=== PATIENT | male | born 1940 | race African-American/Black ===

== ENCOUNTER → 2020-08-19 14:18 | Outpatient (BNVA) | payer OTHER, SELFPAY | PROVIDERS: PCP Family Medicine; Referring Provider Family Medicine; Visit Provider Urology | DX: Z76.89 Persons encountering health services in other specified circumstances (principal) ==

== ENCOUNTER → 2020-12-10 14:02 | Outpatient (BNVA) | payer OTHER, SELFPAY | PROVIDERS: PCP Family Medicine; Visit Provider Urology ==

== ENCOUNTER 2021-01-12 09:24 | Day surgery (SDC) | payer OTHER, SELFPAY ==
[2021-01-07 12:25] VITALS: BMI 24.7
--- NOTE | 2021-01-08 12:49 | HO.ANESPROP2 ---
Documented by User: Angela Galicia 01/08/21 13:09 HPI - Anesthesia Eval Consult details Narrative: 80yo M for Insertion Suprapubic Tube Cardiac cleared, increased risk PMFSH Active Problems Active Problems: All Active Problems (Updated 01/07/21 @ 12:39 by Pamela Sheridan) Neurogenic bladder, flaccid (Acute) Past Medical History Medical History (Updated 01/07/21 @ 12:39 by Pamela Sheridan) (HFpEF) heart failure with preserved ejection fraction CAD (coronary artery disease) Chronic diastolic (congestive) heart failure CVA (cerebral vascular accident) Dementia GERD (gastroesophageal reflux disease) Glaucoma History of Helicobacter pylori infection History of seizures Hx of deep venous thrombosis Left bundle branch block (LBBB) Lymph edema Neurogenic bladder Psoriasis UTI (urinary tract infection) Surgical History Surgical History (Updated 01/07/21 @ 12:21 by Pamela Sheridan) Hx of colonoscopy Social History Social History (Updated 01/07/21 @ 12:37 by Pamela Sheridan) Household Members: Spouse Are you a primary rental boats caretaker to a significant other at home: No Do you presently have visiting nurse or other home services: Yes ([facility] visits every 2 weeks more prn) Smoking Status: Former smoker Smoking Quit Date: 1999 Use of substances other than those prescribed or required for medical reasons: No Advance Directives: No Advance Directives Information Provided: No Advance Directives on File: No Meds Allergies Allergy/AdvReac Type Severity Reaction Status Date / Time ciprofloxacin Allergy Seizure Verified 01/07/21 12:22 Home Medications Medication Instructions Recorded Confirmed Last Taken Type fondaparinux 7.5 mg/0.6 mL 7.5 mg SUBCUT DAILY 08/19/20 01/06/21 Unknown History subcutaneous solution syringe furosemide 20 mg tablet 20 mg PO DAILY 08/19/20 01/06/21 Unknown History acetaminophen 650 mg PO BID PRN 01/06/21 01/06/21 Unknown History ascorbic acid (vitamin C) 500 mg PO DAILY 01/06/21 01/06/21 Unknown History aspirin [Aspir-81] 81 mg PO DAILY 01/06/21 01/06/21 Unknown History cholecalciferol (vitamin D3) 25 mcg PO DAILY 01/06/21 01/06/21 Unknown History [Vitamin D3] cyanocobalamin (vitamin B-12) 1,000 mcg PO DAILY 01/06/21 01/06/21 Unknown History finasteride 5 mg PO DAILY 01/06/21 01/06/21 Unknown History memantine 5 mg PO BID 01/06/21 01/06/21 Unknown History metoprolol succinate 50 mg PO DAILY 01/06/21 01/06/21 Unknown History multivitamin 1 tab PO DAILY 01/06/21 01/06/21 Unknown History omeprazole 20 mg PO DAILY 01/06/21 01/06/21 Unknown History phenytoin sodium extended 200 mg PO BID 01/06/21 01/12/21 01/12/21 06:00 History [Phenytex Extended] potassium chloride 10 meq PO DAILY 01/06/21 01/06/21 Unknown History simvastatin 20 mg PO BEDTIME 01/06/21 01/06/21 Unknown History Exam Exam Date and Time: January 08, 2021 124 Height,Weight and Vital Signs: Height 6 ft 2 in Weight 87.543 kg Narrative Narrative: EKG 12/24/20 NSR at 75 old LBBB, stable since 2011 Per cardiac note, Echo 09/2018 stable from previous with LVEF in 40's Assessment and Plan Assessment Anesthesia Assessment: Chart Reviewed Documented by User: Chikis Moya 01/12/21 12:03 [facility] Past Medical History Medical History (Updated 01/07/21 @ 12:39 by Pamela Sheridan) (HFpEF) heart failure with preserved ejection fraction CAD (coronary artery disease) Chronic diastolic (congestive) heart failure CVA (cerebral vascular accident) Dementia GERD (gastroesophageal reflux disease) Glaucoma History of Helicobacter pylori infection History of seizures Hx of deep venous thrombosis Left bundle branch block (LBBB) Lymph edema Neurogenic bladder Psoriasis UTI (urinary tract infection) Surgical History Surgical History (Updated 01/07/21 @ 12:21 by Pamela Sheridan) Hx of colonoscopy Social History Social History (Updated 01/07/21 @ 12:37 by Pamela Sheridan) Household Members: Spouse Are you a primary rental boats caretaker to a significant other at home: No Do you presently have visiting nurse or other home services: Yes ([facility] visits every 2 weeks more prn) Smoking Status: Former smoker Smoking Quit Date: 1999 Use of substances other than those prescribed or required for medical reasons: No Advance Directives: No Advance Directives Information Provided: No Advance Directives on File: No Meds Allergies Allergy/AdvReac Type Severity Reaction Status Date / Time ciprofloxacin Allergy Seizure Verified 01/07/21 12:22 Home Medications Medication Instructions Recorded Confirmed Last Taken Type fondaparinux 7.5 mg/0.6 mL 7.5 mg SUBCUT DAILY 08/19/20 01/06/21 Unknown History subcutaneous solution syringe furosemide 20 mg tablet 20 mg PO DAILY 08/19/20 01/06/21 Unknown History acetaminophen 650 mg PO BID PRN 01/06/21 01/06/21 Unknown History ascorbic acid (vitamin C) 500 mg PO DAILY 01/06/21 01/06/21 Unknown History aspirin [Aspir-81] 81 mg PO DAILY 01/06/21 01/06/21 Unknown History cholecalciferol (vitamin D3) 25 mcg PO DAILY 01/06/21 01/06/21 Unknown History [Vitamin D3] cyanocobalamin (vitamin B-12) 1,000 mcg PO DAILY 01/06/21 01/06/21 Unknown History finasteride 5 mg PO DAILY 01/06/21 01/06/21 Unknown History memantine 5 mg PO BID 01/06/21 01/06/21 Unknown History metoprolol succinate 50 mg PO DAILY 01/06/21 01/06/21 Unknown History multivitamin 1 tab PO DAILY 01/06/21 01/06/21 Unknown History omeprazole 20 mg PO DAILY 01/06/21 01/06/21 Unknown History phenytoin sodium extended 200 mg PO BID 01/06/21 01/12/21 01/12/21 06:00 History [Phenytex Extended] potassium chloride 10 meq PO DAILY 01/06/21 01/06/21 Unknown History simvastatin 20 mg PO BEDTIME 01/06/21 01/06/21 Unknown History Exam Airway Mallampati Class: II TM Dist: >3cm Neck ROM: Full Heart: gRRr Lungs: CtA BL Assessment and Plan Assessment Anesthesia Assessment: Anesthesia Plan Discussed and Chart Reviewed Final Anesthetic Review NPO: Yes (Sip water with meds) ASA Class: III Final Preanesthetic Review: Meds/Allgs Chart Reviewed and Consent Obtained/Reviewed Patient Risk: Intermediate Procedure Risk: Intermediate Anesthetic Plan Anesthetic Plan: GA Disposition: Standard PACU
[2021-01-12 10:54] VITALS: BP 126/61; PULSE 64; RESP 16; TEMP 36.8; O2SAT 99
[2021-01-12] MEDS: Lactated Ringers 1,000 ML 20 ML IVCONT (11:12)
--- NOTE | 2021-01-12 12:26 | MHC.SHP ---
Pre-Procedural Eval Section A The patient is an INPATIENT: No Changes since office visit: No Cold of Flu in the past 2 weeks, No New Medical Problems, No Changes in Medication and No Patient answered all questions The History & Physical has been completed within 30 days and I have reviewed it.: Yes Section B Chief Complaint: flaccid bladder Allergies: Allergies Allergy/AdvReac Type Severity Reaction Status Date / Time ciprofloxacin Allergy Seizure Verified 01/07/21 12:22 Plan Diagnosis/Plan: Unchanged I have reviewed the history and physical and performed a pertinent physical examination on my patient. No changes have occurred unless specified. Cystoscopy suprapubic tube placement
--- NOTE | 2021-01-12 13:09 | P.BOP_ITS ---
Brief Operative Note Date of Service: 01/12/21 Pre-op diagnosis: Neurogenic bladder Post-op diagnosis: same Procedure: Suprapubic tube placement, cystoscopy Implants: Sixteen Citizen Of The [place] Medina catheter Surgeon: Omer Cantu MD Anesthesia: MAC Estimated blood loss (mL): 0 Pathology: none sent Condition: stable Disposition: same day
--- NOTE | 2021-01-12 13:10 | W.PM.OPN ---
Operative Note Operative Note Date of Service: 01/12/21 Narrative: PreOperative Diagnosis: Neurogenic bladder Post Operative Diagnosis: Neurogenic bladder Procedure: Cystoscopy, suprapubic tube placement Surgeon: Dr Omer Cantu Anesthesia: Mac Indications for procedure: Longstanding neurogenic bladder with CIC after stroke 10 years ago. Has been looked at by . She is now physically unable to perform CIC in so we will place a suprapubic tube. They are aware the risks and benefits particularly risk of hollow viscus injury. Procedure: After informed consent was verified the patient was brought to the operating room and placed in a supine position. Anesthesia was administered per protocol. Patient was placed in a modified dorsal lithotomy position and prepped and draped with sterile fashion. Safety pause time-out performed. Antibiotics have been given. Cystoscopy was performed. The bladder was filled. Local anesthetic was placed in the skin approximately 2 fingerbreadths above symphysis pubis. Find needle was placed. This was seen on cystoscopy. Skin was incised with a 1 cm incision. A trocar was placed into the bladder. A 16 [place]ian Medina catheter was placed through the introducer. This was seen within the bladder. 7 cc placed within the balloon. The suprapubic tube was secured using a nylon suture. He tolerated procedure well, was extubated in the operating room, and returned in stable condition to the recovery area. Pathology: None Drains: Sixteen Belarusian Medina
[2021-01-12 13:15] VITALS: BP 112/62; PULSE 63; RESP 14; TEMP 36.9; O2SAT 100
[2021-01-12 13:20] VITALS: BP 108/54; PULSE 65; RESP 16; O2SAT 98
[2021-01-12 13:25] VITALS: BP 128/66; PULSE 63; RESP 16; O2SAT 100
[2021-01-12 13:30] VITALS: BP 119/60; PULSE 68; RESP 18; O2SAT 98
[2021-01-12 13:45] VITALS: BP 117/69; PULSE 64; RESP 18; TEMP 36.9; O2SAT 98
== END 2021-01-12 14:45 | disposition home or self-care (01) ==
PROVIDERS: Visit Provider Urology
PROC: (CPT 51102; principal; 2021-01-12 11:30)
DX: N31.2 Flaccid neuropathic bladder, not elsewhere classified (principal); I69.898 Other sequelae of other cerebrovascular disease; R33.9 Retention of urine, unspecified; N39.490 Overflow incontinence; Z87.440 Personal history of urinary (tract) infections; G40.909 Epilepsy, unspecified, not intractable, without status epilepticus; I11.0 Hypertensive heart disease with heart failure; I50.32 Chronic diastolic (congestive) heart failure; Z79.899 Other long term (current) drug therapy; Z79.82 Long term (current) use of aspirin; Z88.8 Allergy status to other drugs, medicaments and biological substances
CPT/HCPCS: 51102; J0690; J2250; J2405; J3010

== ENCOUNTER → 2021-02-13 09:29 | Outpatient (BNVA) | payer OTHER, SELFPAY | PROVIDERS: Visit Provider Urology | DX: N31.2 Flaccid neuropathic bladder, not elsewhere classified (principal) | CPT/HCPCS: 51705; 51701; 99212 ==

== ENCOUNTER → 2021-03-13 10:25 | Outpatient (BNVA) | payer OTHER, SELFPAY | PROVIDERS: Visit Provider Urology | DX: N39.0 Urinary tract infection, site not specified (principal); N31.9 Neuromuscular dysfunction of bladder, unspecified | CPT/HCPCS: 51701; 51705; 99212 ==

== ENCOUNTER → 2021-09-09 10:15 | Outpatient (BNVA) | payer OTHER, SELFPAY | PROVIDERS: PCP Family Medicine; Visit Provider Urology | DX: N31.9 Neuromuscular dysfunction of bladder, unspecified (principal) | CPT/HCPCS: 99212 ==

== ENCOUNTER → 2022-03-19 11:24 | Outpatient (BNVA) | payer OTHER, SELFPAY | PROVIDERS: PCP Family Medicine; Visit Provider Urology | DX: Z13.89 Encounter for screening for other disorder (principal) ==

== ENCOUNTER → 2022-09-21 11:05 | Outpatient (BNVA) | payer OTHER, SELFPAY | PROVIDERS: PCP Family Medicine; Visit Provider Urology | DX: N31.9 Neuromuscular dysfunction of bladder, unspecified (principal); N39.0 Urinary tract infection, site not specified; Z87.440 Personal history of urinary (tract) infections; Z93.50 Unspecified cystostomy status | CPT/HCPCS: 99212 ==

== ENCOUNTER → 2023-03-22 08:38 | Outpatient (BNVA) | payer OTHER, SELFPAY | PROVIDERS: PCP Family Medicine; Visit Provider Urology ==

== ENCOUNTER 2023-09-21 10:53 | Outpatient (AMB) | payer OTHER, SELFPAY ==
--- NOTE | 2023-09-21 10:53 | A.OFFVIS_ITS ---
Intake Intake Visit Reasons: 6m follow up Intake Note: Severino is an 83 year old male who presents today VIA telehealth with his nurse Sonya for a 6 month follow up. on abx for cystitis, unknown name of abx. given at [facility]. Allergies ciprofloxacin Allergy (Verified 03/22/23 08:39) Seizure HPI HPI Comments History of Present Illness Details Severino COREAS is a very pleasant male. He is a patient of Dr Ritter. He is seen for the following urologic conditions. - neurogenic bladder Telemedicine Evaluation 15 min Consultation Grandis Parth Video attempted Stable since last visit Will cut down nursing visit to flush 2 times a week Continue with methenamine daily and Bactrim on day of catheter changes Stable on current protocol with monthly change Nursing flushing catheter 2 times a week Daily vitamin C with methanamine and Bactrim on day of catheter changes Follow-up in 6 months Prescriptions provided Neurogenic Bladder: Had suprapubic tube placed December 2020 They are here for further management for incomplete emptying neurogenic bladder. Urinary retention initially found longstanding since stroke in 2009 Managed with suprapubic tube - on daily vitamin-C and methenamine, uses Bactrim on day of catheter changes Does have some overflow incontinence during the day with a diaper Minimal UTI's. Associated conditions Alzhiemers No CAD No CVA Yes Diabetes No Multiple sclerosis No renal replacement therapy No Spinal injury/surgery No Current management SPT change PFSH Medical History (HFpEF) heart failure with preserved ejection fraction CAD (coronary artery disease) Chronic diastolic (congestive) heart failure CVA (cerebral vascular accident) Dementia GERD (gastroesophageal reflux disease) Glaucoma History of Helicobacter pylori infection History of seizures Hx of deep venous thrombosis Left bundle branch block (LBBB) Lymph edema Neurogenic bladder Psoriasis UTI (urinary tract infection) Surgical History Hx of colonoscopy Social History Household Members: Spouse Are you a primary rental boats caretaker to a significant other at home: No Do you presently have visiting nurse or other home services: Yes ([facility] visits every 2 weeks more prn) Alcohol intake: never Patient Tobacco Use Status: Former Tobacco user Review of Systems Const All systems reviewed & are unremarkable except as noted in HPI and below Reports no additional complaints Resp Reports no additional complaints GI Reports no additional complaints Reports as per HPI Musc Reports no additional complaints Physical Exam Telemedicine evaluation Appropriate responses Regular breathing rate and rhythm HEENT Head: Yes normal to inspection Ears: hearing grossly normal bilaterally Eyes General: appearance normal, both eyes and all related structures Neck Neck: Yes normal visual inspection Chest Chest palpation & inspection: normal inspection of the chest Resp Effort & Inspection: normal respiratory effort and able to speak in complete sentences Assessment & Plan Assessment & Plan (1) Neurogenic bladder: Comment: Transition to suprapubic tube 18 Guinean Code(s): N31.9 - Neuromuscular dysfunction of bladder, unspecified (2) Recurrent UTI (urinary tract infection): Code(s): N39.0 - Urinary tract infection, site not specified Plan Six month follow-up Patient Instructions: Imaging studies, laboratory and physical exam results were discussed and reviewed in detail. No major barriers to patient understanding were identified. An opportunity to ask questions regarding the treatment plan was provided. All questions were answered. The patient expressed understanding and agreement with the above treatment plan. The patient is aware they should contact our office by phone for worsening of their current condition or the appearance of new urologic symptoms. Compliance is encouraged with any medications and followup testing that is ordered. It is a privilege to participate in the urologic care of your patient. If you have any questions or concerns regarding treatment for the above conditions, or other urologic issues, please do not hesitate to contact me. The office telephone contact is [phone]. This note is constructed using voice recognition software. While every effort has been made to ensure accuracy inorganic chemistry teacher errors may have been included. Yours sincerely, Dr Omer Cantu MD, [facility] - Urology Providers of Expert, Compassionate Care for the Genitourinary System Telehealth Telehealth Location of provider rendering services: practice address Location of patient: address on file Patient Identification confirmed using: Name, : Yes Telehealth method: voice only Patient verbally consented to treatment: Yes Patient verbally consented to billing insurance company: Yes Patient informed of any privacy concerns related to visit: Yes Coding Level of Care Code Tele Est Pt Level 3 (22791) Diagnoses Neurogenic bladder N31.9 Recurrent UTI (urinary tract infection) N39.0
== END 2023-09-21 11:49 | disposition home or self-care (01) ==
LOC: HO.HUSH 10:53
PROVIDERS: PCP Family Medicine; Referring Provider Family Medicine; Visit Provider Urology
DX: N31.9 Neuromuscular dysfunction of bladder, unspecified (principal); N39.0 Urinary tract infection, site not specified
CPT/HCPCS: 99213

== ENCOUNTER → 2023-09-21 10:53 | Outpatient (BNVA) | payer OTHER, SELFPAY | PROVIDERS: PCP Family Medicine; Visit Provider Urology ==

== ENCOUNTER 2024-03-23 11:41 | Outpatient (AMB) | payer OTHER, SELFPAY ==
--- NOTE | 2024-03-23 11:48 | MHC.OFFVIS ---
Intake Visit Reasons: 6m Cysto Intake Note: Patient is Present for Cystoscopy Urology Med: Methenamine, Antibiotic Allergy: Cipro Blood Thinner:Aspirin URO- G Disposable Cystoscope lot: [id number] exp:12/01/2026 PCP informed that He would like patient to have a Cystoscopy due to Hematuria at time in December LEYLA Hassan -states pt's PCP indicated pt should have cysto, informed that Dr Kahn stated at visit on 09/21 that as long as urine remained clear he could just keep February 2024 follow up- due to the amt of blood nad the time (2 weeks per Sonya) Allergies ciprofloxacin Allergy (Verified 03/22/23 08:39) Seizure HPI Comments Details: Severino COREAS is a very pleasant male. He is a patient of Dr Ritter. He is seen for the following urologic conditions. - neurogenic bladder Here for cystoscopy Episode of hematuria Stable since last visit Will cut down nursing visit to flush 2 times a week Continue with methenamine daily and Bactrim on day of catheter changes Stable on current protocol with monthly change Nursing flushing catheter 2 times a week Daily vitamin C with methanamine and Bactrim on day of catheter changes Follow-up in 6 months Prescriptions provided Neurogenic Bladder: Had suprapubic tube placed December 2020 They are here for further management for incomplete emptying neurogenic bladder. Urinary retention initially found longstanding since stroke in 2009 Managed with suprapubic tube - on daily vitamin-C and methenamine, uses Bactrim on day of catheter changes Does have some overflow incontinence during the day with a diaper Minimal UTI's. Current management SPT change [facility] Medical History (HFpEF) heart failure with preserved ejection fraction CAD (coronary artery disease) Chronic diastolic (congestive) heart failure CVA (cerebral vascular accident) Dementia GERD (gastroesophageal reflux disease) Glaucoma History of Helicobacter pylori infection History of seizures Hx of deep venous thrombosis Left bundle branch block (LBBB) Lymph edema Neurogenic bladder Psoriasis UTI (urinary tract infection) Surgical History Hx of colonoscopy Social History Household Members: Spouse Are you a primary care program director to a significant other at home: No Do you presently have visiting nurse or other home services: Yes ([facility] visits every 2 weeks more prn) Alcohol intake: never Patient Tobacco Use Status: Former Tobacco user Office Procedures Cystoscopy Consent Discussed risk and benefit or proposed procedure with the patient. Information consent for procedure given to the patient. Discussed technical aspects, risks, benefits and alternatives in full. Addressed all of the patient's questions and concerns regarding the procedure. The patient demonstrated knowledge and understanding. They wish to proceed with this procedure. Preparation The patient was prepped in the usual manner. A director of patient safety was present and in the room. Genitalia was prepped with betadine solution in a sterile manner. Lidocaine Jelly 2% was placed into the urethra and 16Fr flexible Olympus cystoscope was inserted into the meatus after adequate lubrication. Procedure Cystoscopy performed using a disposable Urovue digital 16 Micronesian cystoscope. Meatus circumcised Urethra anterior and posterior urethra normal Prostatic Urethra unremarkable, open Bladder examination with retroflexion of cystoscope Bladder Orifices normal shape and position Bladder Capacity median Trabeculations grade 1 Cellule Formation Yes No Diverticulum Formation known Mucosal Erythema - Bladder Tumor - [id number] DISPOSABLE SCOPE URO-G FLEXIBLE SCOPE Procedure code (CPT) selection complete Office Meds lidocaine HCl 2 % mucosal jelly in applicator Performing Provider: Omer Cantu MD Performing Location: [facility] Administered by: Belen Langston RN on 03/23/24 11:50 Dose Route Admin Location Dispensed Lot Number Expiration Date NDC Gallery Assistant 10 mL intra-urethral 10 mL nitrofurantoin monohydrate/macrocrystals 100 mg capsule Performing Provider: Omer Cantu MD Performing Location: [facility] [place] [facility] Administered by: Belen Langston RN on 03/23/24 11:50 Dose Route Admin Location Dispensed Lot Number Expiration Date NDC Gallery Assistant 100 mg PO 1 cap naproxen 500 mg tablet Performing Provider: Omer Cantu MD Performing Location: [facility] [place] [facility] Administered by: Belen Langston RN on 03/23/24 11:50 Dose Route Admin Location Dispensed Lot Number Expiration Date NDC Gallery Assistant 500 mg PO 1 tab Assessment & Plan Assessment & Plan (1) Neurogenic bladder: Comment: Transition to suprapubic tube 18 Micronesian Code(s): N31.9 - Neuromuscular dysfunction of bladder, unspecified Category: Medical Plan Six-month follow-up Orders: Orders AMB Cystoscopy 03/23/24 N39.0 - Urinary tract infection, site not specified AMB Urinalysis Automated 03/23/24 Z13.9 - Encounter for screening, unspecified, N39.0 - Urinary tract infection, site not specified Patient Instructions: Imaging studies, laboratory and physical exam results were discussed and reviewed in detail. No major barriers to patient understanding were identified. An opportunity to ask questions regarding the treatment plan was provided. All questions were answered. The patient expressed understanding and agreement with the above treatment plan. The patient is aware they should contact our office by phone for worsening of their current condition or the appearance of new urologic symptoms. Compliance is encouraged with any medications and followup testing that is ordered. It is a privilege to participate in the urologic care of your patient. If you have any questions or concerns regarding treatment for the above conditions, or other urologic issues, please do not hesitate to contact me. The office telephone contact is [phone]. This note is constructed using voice recognition software. While every effort has been made to ensure accuracy skoog patching machine operator errors may have been included. Yours sincerely, Dr Omer Cantu MD, [facility] - Urology Providers of Expert, Compassionate Care for the Genitourinary System Coding Level of Care Code Est Pt Level 3 (01744) Diagnoses Neurogenic bladder N31.9 CPT Codes Cystoscopy - CPT: 47230-[id number] ([id number])
== END 2024-03-23 12:28 | disposition home or self-care (01) ==
PROVIDERS: PCP Family Medicine; Visit Provider Urology
DX: N31.9 Neuromuscular dysfunction of bladder, unspecified (principal)
CPT/HCPCS: 52000; 99213

== ENCOUNTER → 2024-03-23 11:41 | Outpatient (BNVA) | payer OTHER, SELFPAY | PROVIDERS: PCP Family Medicine; Visit Provider Urology | DX: N31.9 Neuromuscular dysfunction of bladder, unspecified (principal); N39.0 Urinary tract infection, site not specified | CPT/HCPCS: 52000; 99212 ==

== ENCOUNTER 2024-09-25 10:53 | Outpatient (AMB) | payer OTHER, SELFPAY ==
--- NOTE | 2024-09-25 10:43 | A.OFFVIS_ITS ---
Intake Visit Reasons: 6m follow up Intake Note: Patient is present for 6M/F/U Urology Medication:BACTRIM,METHENAMINE HIPPURATE,VITMAIN B12 Antibiotic Allergy:CIPROFLOXACIN Blood Thinner:ASPIRIN Railroad Shop Inspector Required: No Allergies ciprofloxacin Allergy (Verified 09/25/24 10:55) Seizure HPI Comments Details: Severino COREAS is a very pleasant male. He is a patient of Dr Ritter. He is seen for the following urologic conditions. - neurogenic bladder Telemedicine Evaluation 15 min Consultation D[employer]umator Parth Video Continue with methenamine daily and Bactrim on day of catheter changes Stable on current protocol with monthly change Nursing flushing catheter 2 times a week Daily vitamin C with methanamine and Bactrim on day of catheter changes Follow-up in 6 months Prescriptions provided Neurogenic Bladder: Had suprapubic tube placed December 2020 They are here for further management for incomplete emptying neurogenic bladder. Urinary retention initially found longstanding since stroke in 2009 Managed with suprapubic tube - on daily vitamin-C and methenamine, uses Bactrim on day of catheter changes Does have some overflow incontinence during the day with a diaper Minimal UTI's. Current management SPT change [facility] Medical History (HFpEF) heart failure with preserved ejection fraction CAD (coronary artery disease) Chronic diastolic (congestive) heart failure CVA (cerebral vascular accident) Dementia GERD (gastroesophageal reflux disease) Glaucoma History of Helicobacter pylori infection History of seizures Hx of deep venous thrombosis Left bundle branch block (LBBB) Lymph edema Neurogenic bladder Psoriasis UTI (urinary tract infection) Surgical History Hx of colonoscopy Social History Household Members: Spouse Are you a primary healthcare administration intern to a significant other at home: No Do you presently have visiting nurse or other home services: Yes ([facility] every 2 weeks more prn) Alcohol intake: never Patient Tobacco Use Status: Former Tobacco user Review of Systems Const All systems reviewed & are unremarkable except as noted in HPI and below Reports no additional complaints Resp Reports no additional complaints GI Reports no additional complaints Reports as per HPI Musc Reports no additional complaints Physical Exam Telemedicine evaluation Appropriate responses Regular breathing rate and rhythm HEENT Head: Yes normal to inspection Ears: hearing grossly normal bilaterally Eyes General: appearance normal, both eyes and all related structures Neck Neck: Yes normal visual inspection Chest Chest palpation & inspection: normal inspection of the chest Resp Effort & Inspection: normal respiratory effort and able to speak in complete sentences Telehealth Telehealth Telehealth Platform: [employer]The Resumator Location of provider rendering services: practice address Location of patient: address on file Patient Identification confirmed using: Name, : Yes Telehealth method: video Patient verbally consented to treatment: Yes Patient verbally consented to billing insurance company: Yes Patient informed of any privacy concerns related to visit: Yes Minutes spent on Phone/Video with Pt.: 15 Assessment & Plan Assessment & Plan (1) Neurogenic bladder: Comment: Transition to suprapubic tube 18 [place] Code(s): N31.9 - Neuromuscular dysfunction of bladder, unspecified Category: Medical Plan Continue medications Six-month follow-up Patient Instructions: Imaging studies, laboratory and physical exam results were discussed and reviewed in detail. No major barriers to patient understanding were identified. An opportunity to ask questions regarding the treatment plan was provided. All questions were answered. The patient expressed understanding and agreement with the above treatment plan. The patient is aware they should contact our office by phone for worsening of their current condition or the appearance of new urologic symptoms. Compliance is encouraged with any medications and followup testing that is ordered. It is a privilege to participate in the urologic care of your patient. If you have any questions or concerns regarding treatment for the above conditions, or other urologic issues, please do not hesitate to contact me. The office telephone contact is [phone]. This note is constructed using voice recognition software. While every effort has been made to ensure accuracy director of planning errors may have been included. Yours sincerely, Dr Omer Cantu MD, [facility] - Urology Providers of Expert, Compassionate Care for the Genitourinary System Coding Level of Care Code Tele Est Pt Level 3 (36350) Diagnoses Neurogenic bladder N31.9
== END 2024-09-25 16:30 | disposition home or self-care (01) ==
LOC: HO.HUSH 10:53
PROVIDERS: PCP Family Medicine; Visit Provider Urology
DX: N31.9 Neuromuscular dysfunction of bladder, unspecified (principal)
CPT/HCPCS: 99213

== ENCOUNTER 2025-04-23 10:47 | Outpatient (AMB) | payer OTHER, SELFPAY ==
--- NOTE | 2025-04-23 10:48 | A.OFFVIS_ITS ---
Intake Visit Reasons: 6m follow up Intake Note: Patient is present for 6M/F/U Urology Medication:,METHENAMINE HIPPURATE,VITMAIN B12 Antibiotic Allergy:CIPROFLOXACIN Blood Thinner:ASPIRIN Print Room Worker Required: No Allergies ciprofloxacin Allergy (Verified 09/25/24 10:55) Seizure HPI Comments Details: Severino COREAS is a very pleasant male. He is a patient of Dr Ritter. He is seen for the following urologic conditions. - neurogenic bladder Telemedicine Evaluation 15 min Consultation Doximity Parth Video Continue with methenamine daily and Bactrim on day of catheter changes Stable on current protocol with monthly change Nursing flushing catheter 2 times a week Daily vitamin C with methanamine and Bactrim on day of catheter changes Follow-up in 6 months Prescriptions provided Neurogenic Bladder: Had suprapubic tube placed December 2020 They are here for further management for incomplete emptying neurogenic bladder. Urinary retention initially found longstanding since stroke in 2009 Managed with suprapubic tube - on daily vitamin-C and methenamine, uses Bactrim on day of catheter changes Does have some overflow incontinence during the day with a diaper Minimal UTI's. Current management SPT change [facility] Medical History (HFpEF) heart failure with preserved ejection fraction CAD (coronary artery disease) Chronic diastolic (congestive) heart failure CVA (cerebral vascular accident) Dementia GERD (gastroesophageal reflux disease) Glaucoma History of Helicobacter pylori infection History of seizures Hx of deep venous thrombosis Left bundle branch block (LBBB) Lymph edema Neurogenic bladder Psoriasis UTI (urinary tract infection) Surgical History Hx of colonoscopy Social History Household Members: Spouse Are you a primary child care counselor to a significant other at home: No Do you presently have visiting nurse or other home services: Yes (KARL Hassan visits every 2 weeks more prn) Alcohol intake: never Patient Tobacco Use Status: Former Tobacco user Review of Systems Const All systems reviewed & are unremarkable except as noted in HPI and below Reports no additional complaints Resp Reports no additional complaints GI Reports no additional complaints Reports as per HPI Musc Reports no additional complaints Physical Exam Telemedicine evaluation Appropriate responses Regular breathing rate and rhythm HEENT Head: Yes normal to inspection Ears: hearing grossly normal bilaterally Eyes General: appearance normal, both eyes and all related structures Neck Neck: Yes normal visual inspection Chest Chest palpation & inspection: normal inspection of the chest Resp Effort & Inspection: normal respiratory effort and able to speak in complete sentences Telehealth Telehealth Telehealth Platform: [employer] Location of provider rendering services: practice address Location of patient: address on file Patient Identification confirmed using: Name, : Yes Telehealth method: video Patient verbally consented to treatment: Yes Patient verbally consented to billing insurance company: Yes Patient informed of any privacy concerns related to visit: Yes Assessment & Plan Assessment & Plan (1) Neurogenic bladder: Comment: Transition to suprapubic tube 18 [facility] Code(s): N31.9 - Neuromuscular dysfunction of bladder, unspecified Category: Medical (2) Recurrent UTI (urinary tract infection): Code(s): N39.0 - Urinary tract infection, site not specified Category: Medical Plan Six-month follow Medications: Refilled ascorbic acid (vitamin C) 1 g PO DAILY 90 tabs 1RF 90 days N39.0 - Urinary tract infection, site not specified methenamine hippurate 1 g PO DAILY 90 tabs 1RF 90 days N39.0 - Urinary tract infection, site not specified sulfamethoxazole-trimethoprim 400-80 mg (Bactrim) Take 1 tablet in morning and evening on day of catheter changes 1 tab PO BID 30 tabs 1RF 15 days N39.0 - Urinary tract infection, site not specified Patient Instructions: This note is constructed using voice recognition software. While every effort has been made to ensure accuracy tack picker errors may have been included. Imaging studies, laboratory and physical exam results were discussed and reviewed in detail. No major barriers to patient understanding were identified. An opportunity to ask questions regarding the treatment plan was provided. All questions were answered. The patient expressed understanding and agreement with the above treatment plan. The patient is aware they should contact our office by phone for worsening of their current condition or the appearance of new urologic symptoms. Compliance is encouraged with any medications and followup testing that is ordered. It is a privilege to participate in the urologic care of your patient. If you have any questions or concerns regarding treatment for the above conditions, or other urologic issues, please do not hesitate to contact me. The office telephone contact is [phone]. Sincerely, Dr Omer Cantu MD, [facility] - Urology Compassionate Specialist Care for the Genitourinary System Coding Level of Care Code Tele Est Pt Level 3 (17841) Complex EM visit Add On G2211 Diagnoses Neurogenic bladder N31.9 Recurrent UTI (urinary tract infection) N39.0
--- OUTSIDE RECORDS SUMMARY | 2025-04-23 12:07 | XMS_ITS | Clinical Summary ---
Author Organization [facility] Address [address] [place] [address] Care Team Providers Care Solder Technician Name Role Phone Sarita Palmer MD Primary Care Provider Allergies No known active allergies Medications Medication Sig Dispensed Refills Start Date End Date Status furosemide (LASIX) 20 MG tablet Take 20 mg by mouth 2 (two) times a day. 0 Active potassium chloride ER (K-DUR,KLOR-CON) tablet 20 mEq Take 20 mEq by mouth 2 (two) times a day. 0 Active finasteride (PROSCAR) 5 MG tablet Take 5 mg by mouth daily. 0 Active metoprolol succinate (TOPROL-XL) 24 hr tablet 100 mg Take 100 mg by mouth daily. 0 Active Multiple Vitamin (MULTI VITAMIN PO) Take by mouth. 0 Ac tive vitamin C (ASCORBIC ACID) 500 MG tablet Take 500 mg by mouth daily. 0 Active Cholecalciferol (VITAMIN D3) 2000 UNITS capsule Take 2,000 Units by mouth daily. 0 Active simvastatin (ZOCOR) tablet 10 mg Take 10 mg by mouth every night at bedtime. 0 Active phenytoin (DILANTIN) 30 MG ER capsule Take by mouth 3 (three) times a day. 0 Active ammonium lactate (LAC-HYDRIN) 12 % lotion Apply topically as needed for dry skin. 0 Active clotrimazole (LOTRIMIN) 1 % cream Apply topically 2 (two) times a day. 0 Active Cranberry 250 MG TABS Take 250 mg by mouth 2 (two) times a day. 0 Active docusate sodium (COLACE) 100 MG capsule Take 100 mg by mouth daily. 0 Active nystatin (MYCOSTATIN) 653872 UNIT/ML suspension Take 500,000 Units by mouth 4 (four) times a day. 0 Active Triamcinolone Acetonide 0.025 % LOTN Apply topically. 0 Active fondaparinux (ARIXTRA) 7.5 MG/0.6ML SOLN syringe Inject 0.6 mL (7.5 mg total) under the skin daily. 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 Family History Medical History Relation Name Comments Cancer Mother Relation Name Status Comments Mother Social History Tobacco Use Types Packs/Day Years Used Date Smoking Tobacco: Every Day Smokeless Tobacco: Never Alcohol Use Standard Drinks/Week Comments Yes 0 (1 standard drink = 0.6 oz pur e alcohol) Sex and Gender Information Value Date Recorded Sex Assigned at Not on file Gender Identity Not on file Sexual Orientation Not on file Last Filed Vital Signs Vital Sign Reading Time Taken Comments Blood Pressure 138/61 09/24/2020 9:48 AM EST Pulse 71 09/24/2020 9:48 AM EST Temperature 36.3 C (97.3 F) 09/24/2020 9:48 AM EST Respiratory Rate - - Oxygen Saturation - - Inhaled Oxygen Concentration - - Weight 93.3 kg (205 lb 9.6 oz) 09/24/2020 9:48 A M EST Height 188 cm (6' 2 ) 09/24/2020 9:48 AM EST Body Mass Index 26.4 09/24/2020 9:48 AM EST Plan of Treatment Health Maintenance Due Date Last Done Comments COVID-19 Vaccine (#1) 03/14/1941 Depression Screening 1950 Preventative Health Evaluation 1956 DTap / Tdap / Td (1 - Tdap) 1957 Shingrix-Zoster Vaccine (1 of 2) 1988 Fall Risk Assessment 2003 RSV Adult > 60+ Yrs or Pregn ant (1 - 1-dose 75+ series) 2013 Pneumococcal Vaccine (2 of 2 - PPSV23 or PCV20) 12/16/2015 10/21/2015 Influenza Vaccine (Season Ended) 2025 Hepatitis B Vaccines Aged Out No long er eligible based on patient's age to complete this topic RSV Ped < 20 months Aged Out No longe r eligible based on patient's age to complete this topic Care Teams Solder Technician Relationship Specialty Start Date End Date Sarita Palmer MD [address] [place] [id number] PCP - General Family Medicine 07/13/17
== END 2025-04-23 15:07 | disposition home or self-care (01) ==
LOC: HO.HUSH 10:47
PROVIDERS: PCP Family Medicine; Visit Provider Urology
DX: N31.9 Neuromuscular dysfunction of bladder, unspecified (principal); N39.0 Urinary tract infection, site not specified
CPT/HCPCS: 99213; G2211

== ENCOUNTER → 2025-09-04 09:28 | Outpatient (BNVA) | payer OTHER, SELFPAY | PROVIDERS: PCP Family Medicine; Visit Provider Urology | DX: Z46.6 Encounter for fitting and adjustment of urinary device (principal); N31.9 Neuromuscular dysfunction of bladder, unspecified; N39.0 Urinary tract infection, site not specified | CPT/HCPCS: 51700; 51705 ==